=== PATIENT | female | born 1965 | race Caucasian/White ===

== ENCOUNTER 2020-07-07 17:01 | Emergency (ER) | payer OTHER ==
[~2020-07-07] VITALS: Ht 170.2 cm; Wt 115.8 kg
--- NOTE | 2020-07-07 17:25 | NUR ---
SENT FROM [facility]CP FOR CELLULITIS RT INDEX FINGER X1 MO, STARTED SCRATCH FROM [place]. PT ATTACHED TO MONITORS. VSS. NADN. CMS INTACT IN FINGER. CAP REFILL <3 SECONDS
[2020-07-07 18:24] LABS: BASOPHILS % (AUTO) 1 % (0-1); EOSINOPHILS % (AUTO) 2 % (1-7); LYMPHOCYTES % (AUTO) 24 % (22-44); MEAN CORPUSCULAR HEMOGLOBIN 30.6 pg (27.0-34.8); MEAN CORPUSCULAR HGB CONC 33.9 g/dL (32.4-35.8); MONOCYTES % (AUTO) 6 % (2-9); NEUTROPHILS % (AUTO) 68 % (42-75); PLATELET COUNT 289 x10^3/uL (130-400); RED BLOOD COUNT 5.06 x10^6/uL (3.82-5.3); RED CELL DISTRIBUTION WIDTH 14.1 % (9.6-15.2)
[2020-07-07 18:26] LABS: MD NO
[2020-07-07 18:32] LABS: ANION GAP 8 mmol/L (5-15); CALCIUM 9.6 mg/dL (8.5-10.1); CHLORIDE 107 mmol/L (98-107)
[2020-07-07 18:40] VITALS: BP 149/91
--- NOTE | 2020-07-07 18:41 | NUR ---
PT RESTING IN BED. AWAITNG D/C PAPERWORK. VSS. CLAY.
== END 2020-07-07 19:02 | disposition home or self-care (01) ==
LOC: ED 18:55
DX: L03.012 Cellulitis of left finger (principal); R21 Rash and other nonspecific skin eruption; J45.909 Unspecified asthma, uncomplicated
CPT/HCPCS: 36415; 80048; 85025; 99283